=== PATIENT | male | born 1945 | race African-American/Black ===

== ENCOUNTER 2018-08-08 00:07 | Emergency (ER) | payer OTHER ==
[~2018-08-08] VITALS: Ht 177.8 cm; Wt 84.1 kg
[2018-08-08 02:46] LABS: ANION GAP 7 mmol/L (8-16); CALCIUM, TOTAL 8.9 mg/dL (8.8-10.5); CARBON DIOXIDE 29 mmol/L (22-29); CHLORIDE 106 mmol/L (98-107); CREATININE 0.88 mg/dL (0.60-1.30); GLUCOSE,RANDOM 106 mg/dL (70-110); SODIUM SERUM 142 mmol/L (136-145); UREA NITROGEN, BLOOD 22 mg/dL (7-18)
[2018-08-08 02:53] LABS: GLOMERULAR FILTR. RATE CALC > 60 mL/min (>60)
[2018-08-08 02:54] LABS: BASOPHILS % (AUTO) 1.4 % (0.0-2.0); EOSINOPHILS % (AUTO) 2.3 % (1.0-6.0); HEMATOCRIT 40.7 % (41-53); HEMOGLOBIN 13.4 g/dL (13.5-17.5); LYMPHOCYTES # (AUTO) 1.1 K/uL (1.0-4.8); LYMPHOCYTES % (AUTO) 28.9 % (22.0-44.0); MEAN CORPUSCULAR HEMOGLOBIN 30.6 pg (26.0-34.0); MEAN CORPUSCULAR VOLUME 93 fL (80-100); MONOCYTES # (AUTO) 0.4 K/uL (0.1-1.0); NEUTROPHILS % (AUTO) 55.4 % (40.0-70.0); PLATELET COUNT (AUTO) 239 K/uL (150-450); RED BLOOD CELL COUNT(AUTO) 4.39 MIL/uL (4.50-5.90); RED CELL DISTRIBUTION WIDTH 16.2 % (11.5-14.5)
[2018-08-08 03:29] VITALS: BP 141/85
== END 2018-08-08 04:00 | disposition home or self-care (01) ==
LOC: EMS 00:08
DX: R19.7 Diarrhea, unspecified (principal); M54.9 Dorsalgia, unspecified; I10 Essential (primary) hypertension; I25.10 Atherosclerotic heart disease of native coronary artery without angina pectoris; Z87.891 Personal history of nicotine dependence
CPT/HCPCS: 99284

== ENCOUNTER 2019-11-16 09:51 | Emergency (ER) | payer MEDICARE, OTHER ==
[~2019-11-16] VITALS: Ht 167.6 cm; Wt 68.2 kg
[2019-11-16 09:53] VITALS: BP 143/97
[2019-11-16] MEDS ORDERED: HYDR-1475 PO (09:56)
[2019-11-16] MEDS ORDERED: ASPI-1111 PO (09:56)
[2019-11-16] MEDS ORDERED: ATOR40TA28 PO (09:58)
[2019-11-16] MEDS ORDERED: CARV6 PO (09:58)
[2019-11-16] MEDS ORDERED: DOCU-275 PO (09:58)
[2019-11-16] MEDS ORDERED: LOSA-88 PO (09:58)
== END 2019-11-16 12:32 | disposition home or self-care (01) ==
LOC: EMS 09:52
DX: S91.001A Unspecified open wound, right ankle, initial encounter (principal); L97.311 Non-pressure chronic ulcer of right ankle limited to breakdown of skin; I25.10 Atherosclerotic heart disease of native coronary artery without angina pectoris; I10 Essential (primary) hypertension; Z95.5 Presence of coronary angioplasty implant and graft; Z87.891 Personal history of nicotine dependence; Z79.82 Long term (current) use of aspirin; Z79.899 Other long term (current) drug therapy; X58.XXXA Exposure to other specified factors, initial encounter; Y93.89 Activity, other specified; Y92.89 Other specified places as the place of occurrence of the external cause; Y99.8 Other external cause status

== ENCOUNTER 2020-03-22 03:01 | Emergency (ER) | payer MEDICAID, MEDICARE ==
[~2020-03-22] VITALS: Ht 175.3 cm; Wt 77.7 kg
[~2020-03-22 03:01] MED LIST: ASPI-1111 PO; ATOR40TA28 PO; CARV6 PO; DOCU-275 PO; HYDR-1475 PO; LOSA-88 PO; RISP3 PO
[2020-03-22] MEDS ORDERED: TraMADol HCL 50 MG TABLET PO ONE (06:30)
[2020-03-22 07:37] VITALS: BP 110/78
== END 2020-03-22 08:30 | disposition home or self-care (01) ==
LOC: EMS 03:01
DX: M47.896 Other spondylosis, lumbar region (principal); I25.10 Atherosclerotic heart disease of native coronary artery without angina pectoris; E11.9 Type 2 diabetes mellitus without complications; I10 Essential (primary) hypertension; G89.29 Other chronic pain; Z87.891 Personal history of nicotine dependence; Z79.82 Long term (current) use of aspirin
CPT/HCPCS: 72100

== ENCOUNTER 2020-11-13 19:10 | Emergency (ER) | payer MEDICARE ==
[~2020-11-13] VITALS: Ht 175.3 cm; Wt 97.3 kg
[~2020-11-13 19:10] MED LIST changes: -LOSA-88 PO; +LOSA50TA37 PO; -RISP3 PO; +RISP3TAB35 PO
[2020-11-13 21:01] VITALS: BP 162/106
== END 2020-11-13 23:07 | disposition home or self-care (01) ==
LOC: EMS 19:10
DX: F31.9 Bipolar disorder, unspecified (principal); I25.10 Atherosclerotic heart disease of native coronary artery without angina pectoris; E11.9 Type 2 diabetes mellitus without complications; I10 Essential (primary) hypertension; Z79.82 Long term (current) use of aspirin; Z79.899 Other long term (current) drug therapy
CPT/HCPCS: Z7502